=== PATIENT | female | born 1970 | race Caucasian/White ===

== ENCOUNTER → 2016-07-30 | Outpatient (REF) | payer OTHER | LOC: M LAB REF 16:34 | PROVIDERS: ATTEND Internal Medicine Medical Oncology | DX: C50.919 Malignant neoplasm of unspecified site of unspecified female breast (principal) ==

== ENCOUNTER → 2017-01-29 | Outpatient (REF) | payer OTHER | LOC: M LAB REF 13:21 | PROVIDERS: ATTEND Internal Medicine Medical Oncology | DX: C50.919 Malignant neoplasm of unspecified site of unspecified female breast (principal) ==

== ENCOUNTER → 2017-07-30 | Outpatient (REF) | payer OTHER ==
[2017-08-01 10:46] LABS: CA15-3 ANTIGEN 5.9 U/ML (<32.4)
== END ==
LOC: M LAB REF 14:09
DX: C50.919 Malignant neoplasm of unspecified site of unspecified female breast (principal)

== ENCOUNTER → 2017-08-05 | Outpatient (CLI) | payer OTHER ==
[~2017-08-05] MED LIST: PROHANCE 279.3MG/ML 15ML VIAL (A9576) As Ordered
== END ==
LOC: M RAD 17:46
DX: Z85.3 Personal history of malignant neoplasm of breast (principal); Z98.82 Breast implant status; Z90.13 Acquired absence of bilateral breasts and nipples
CPT/HCPCS: A9576

== ENCOUNTER → 2020-08-15 | Outpatient (CLI) | payer BC ==
[~2020-08-15] MED LIST changes: +GLUC1CAP10 PO; +MULTCAP PO; +PANT40TA29 PO; -PROHANCE 279.3MG/ML 15ML VIAL (A9576) As Ordered; +ZOLO25TA PO
--- NOTE | 2020-08-15 14:49 | REP ---
INDICATION: RT BREAST IMPLANT ? INTEGRARITY OF IMPLANT. Patient is status post mastectomy with bilateral silicone augmentation implants. COMPARISON: Comparison breast MRI study is from August 05, 2017.. TECHNIQUE: Right whole breast augmentation implants sonography. Unilateral right breast study. FINDINGS: Implant margins are smooth. There is no evidence of internal linear echogenicity to suggest stepladder sign. There is no evidence to suggest extracapsular silicone. No evidence of Stacie implant effusion or mass. IMPRESSION: Status post augmentation implant right breast. Intact silicone implant margins. No ultrasound evidence of implant disruption. <Electronically signed by King Luis > 08/15/20 [id number]
== END ==
LOC: M RAD 13:40
PROVIDERS: ATTEND Plastic Surgery
DX: Z90.13 Acquired absence of bilateral breasts and nipples (principal); Z85.3 Personal history of malignant neoplasm of breast; Z98.890 Other specified postprocedural states